=== PATIENT | female | born 1975 | race Caucasian/White ===

== ENCOUNTER 2016-07-23 17:11 | Emergency (ER) | payer OTHER ==
[2016-07-23 17:12] VITALS: BMI 28.9
[2016-07-23 17:20] VITALS: TEMP 98
[2016-07-23] MEDS ORDERED: Sodium Chloride 0.9% 1,000 ML IV STA (17:44)
--- NOTE | 2016-07-23 17:47 | ED PDOC ---
Arrival/HPI - General Chief Complaint: Abdominal Pain Time Seen by Provider: 07/23/16 17:43 Historian: Patient - History of Present Illness Narrative History of Present Illness (Text): 07/23/16 17:37 A 40 year old female, whose past medical history includes diabetes, asthma, and myomectomy, presents to the emergency department complaining of constant diffuse abdominal patient for the past 5 days. Patient states pain is waxing and waning in nature and more intensity in the cleopatra-umbilical region. Pain is associated with nausea and vomiting. Patient denies any fever, chills, diarrhea , chest pain, shortness of breath, recent travel, or any other complaints at this time. Patient states she allergic to pain medication and does not want anything for the pain at this time. PMD: Dr. Donohue Time/Duration: Other Symptom Onset: Sudden Symptom Course: Unchanged Quality: Other Activities at Onset: Rest Context: Home Past Medical History - Provider Review Nursing Documentation Reviewed: Yes - Infectious Disease Hx of Infectious Diseases: None - Cardiac Hx Hypertension: No - Pulmonary Hx Respiratory Disorders: Yes Hx Asthma: Yes (dx age 13) Other/Comment: pt has not taken asthma medication "in years" - Endocrine/Metabolic Hx Endocrine Disorders: Yes Hx Diabetes Mellitus Type 1: Yes (dx 2015) - Musculoskeletal/Rheumatological Hx Falls: Yes (2 yrs ago) - Genitourinary/Gynecological Hx Genitourinary Disorders: Yes (4 pregnancies/4 miscarriages) Hx Urinary Tract Infection: Yes (dx 03/05/16 at [facility] [place]) - Psychiatric Hx Substance Use: No - Surgical History Other/Comment: Fibroid removal - Anesthesia Hx Anesthesia: Yes Hx Anesthesia Reactions: No - Suicidal Assessment Feels Threatened In Home Enviroment: No Family/Social History - Physician Review Nursing Documentation Reviewed: Yes Family/Social History: Aortic/Thoracic Disection Smoking Status: Former Smoker Hx Alcohol Use: No Hx Substance Use: No Allergies/Home Meds Allergies/Adverse Reactions: Allergies aspirin Allergy (Severe, Verified 07/23/16 17:21) SWELLING acetaminophen [From Tylenol] Allergy (Verified 07/23/16 17:21) SWELLING diphenhydramine HCl [From Benadryl] Allergy (Verified 07/23/16 17:21) SWELLING hydromorphone HCl [From Dilaudid] Allergy (Verified 07/23/16 17:21) SWELLING ibuprofen Allergy (Verified 07/23/16 17:21) SWELLING ketorolac tromethamine [From Toradol] Allergy (Verified 07/23/16 17:21) SWELLING RASH, ITCHINESS, EYE SWELLING morphine Allergy (Verified 07/23/16 17:21) SWELLING naproxen Allergy (Verified 07/23/16 17:21) SWELLING Home Medications: Home Meds Medication Instructions Recorded Confirmed Insulin. 25 units SQ BID 01/16/16 07/23/16 Review of Systems - Physician Review All systems were reviewed & negative as marked: Yes - Review of Systems Constitutional: absent: Fevers Respiratory: absent: SOB Cardiovascular: absent: Chest Pain Gastrointestinal: Abdominal Pain, Nausea, Vomiting. absent: Diarrhea Genitourinary Female: absent: Dysuria Physical Exam Vital Signs Reviewed: Yes Vital Signs Temp Pulse Resp BP Pulse Ox 07/23/16 22:11 83 14 170/90 H 98 07/23/16 18:53 79 18 158/89 H 98 07/23/16 17:16 98 F 87 18 164/99 H 99 Temperature: Afebrile Blood Pressure: Hypertensive Pulse: Regular Respiratory Rate: Normal Appearance: Positive for: Well-Appearing, Non-Toxic, Comfortable Pain Distress: None Mental Status: Positive for: Alert and Oriented X 3 - Systems Exam Head: Present: Atraumatic, Normocephalic Pupils: Present: PERRL Extroacular Muscles: Present: EOMI Conjunctiva: Present: Normal Mouth: Present: Moist Mucous Membranes Neck: Present: Normal Range of Motion Respiratory/Chest: Present: Clear to Auscultation, Good Air Exchange. No: Respiratory Distress, Accessory Muscle Use Cardiovascular: Present: Regular Rate and Rhythm, Normal S1, S2. No: Murmurs Abdomen: Present: Tenderness (non focal diffuse tenderness with palpation), Normal Bowel Sounds. No: Distention, Peritoneal Signs, Rebound, Guarding Back: Present: Normal Inspection Upper Extremity: Present: Normal Inspection. No: Cyanosis, Edema Lower Extremity: Present: Normal Inspection. No: Edema Neurological: Present: GCS=15, CN II-XII Intact, Speech Normal Skin: Present: Warm, Dry, Normal Color. No: Rashes Psychiatric: Present: Alert, Oriented x 3, Normal Insight, Normal Concentration Medical Decision Making ED Course and Treatment: 07/23/16 21:31 I disc results w the pt. she is resting comfortably in no distress. disc plan for rx, follow up, and rtr. the pt v/u and agrees w plan. all questions and concerns addressed at this time. CT abd/pelvis IMPRESSION: Renal pelvic and proximal ureteral mucosal thickening and enhancement suggest urinary tract infection; no CT findings of appendicitis; small nonobstructing umbilical hernia containing fat and small bowel; dominant follicle/small cyst in the right ovary - Lab Interpretations Lab Results: 07/23/16 18:20 07/23/16 18:20 Lab Results 07/23/16 18:20: Sodium 135, Potassium 3.7, Chloride 98, Carbon Dioxide 31, Anion Gap 10, BUN 8, Creatinine 0.5, Est GFR ( Amer) > 60, Est GFR (Non- Af Amer) > 60, Random Glucose 259 H, Calcium 9.9, Total Bilirubin 0.8, AST 33, ALT 35, Alkaline Phosphatase 144 H, Total Protein 7.9, Albumin 4.1, Globulin 3.8 , Albumin/Globulin Ratio 1.1, Lipase 88 07/23/16 18:20: Urine Color Yellow, Urine Appearance Clear, Urine pH 6.5, Ur Specific [place] 1.010, Urine Protein Negative, Urine Glucose (UA) >=1000, Urine Ketones Negative, Urine Blood Negative, Urine Nitrate Negative, Urine Bilirubin Negative, Urine Urobilinogen 0.2, Ur Leukocyte Esterase Trace H, Urine RBC 0 - 2, Urine WBC 0 - 2, Ur Epithelial Cells 1 - 3, Urine Bacteria Small, Urine HCG, Qual Negative 07/23/16 18:20: WBC 9.3, RBC 4.58, Hgb 14.0, Hct 38.9, MCV 84.9, MCH 30.6, MCHC 36.0, RDW 12.0, Plt Count 317, MPV 9.0, Gran % 49.2 L, Lymph % (Auto) 41.8 H, Person % (Auto) 6.3 H, Eos % (Auto) 2.4, Baso % (Auto) 0.3, Gran # 4.55, Lymph # 3.9 H, Person # 0.6, Eos # 0.2, Baso # 0.03 I have reviewed the lab results: Yes - RAD Interpretation Radiology Orders: 07/23/16 17:44 ABD PELVIS PO & IV CONTRAST [CT] Stat - Medication Orders Current Medication Orders: Discontinued Medications Sodium Chloride (Sodium Chloride 0.9%) 1,000 mls @ 999 mls/hr IV .Q1H1M STA Stop: 07/23/16 18:44 Last Admin: 07/23/16 18:26 Dose: 999 mls/hr Ceftriaxone Sodium (Rocephin 1 Gram Ivpb) 1 gm in 100 mls @ 200 mls/hr IVPB STAT STA PRN Reason: Protocol Stop: 07/23/16 22:02 Last Admin: 07/23/16 21:43 Dose: 200 mls/hr Iohexol (Omnipaque 240 (50 Ml)) Confirm Administered Dose 50 ml .ROUTE .STK-MED ONE Stop: 07/23/16 17:55 Last Admin: 07/23/16 19:07 Dose: 50 ml Iohexol (Omnipaque 350 100 Ml) Confirm Administered Dose 350 mg .ROUTE .STK-MED ONE Stop: 07/23/16 18:31 Ondansetron HCl (Zofran Inj) 4 mg IVP ONCE ONE Stop: 07/23/16 17:45 Last Admin: 07/23/16 18:26 Dose: 4 mg - Scribe Statement The provider has reviewed the documentation as recorded by the Richie Rosenthal Provider Scribe Attestation: All medical record entries made by the Richie were at my direction and personally dictated by me. I have reviewed the chart and agree that the record accurately reflects my personal performance of the history, physical exam, medical decision making, and the department course for this patient. I have also personally directed, reviewed, and agree with the discharge instructions and disposition. Disposition/Present on Arrival - Present on Arrival Any Indicators Present on Arrival: No History of DVT/PE: No History of Uncontrolled Diabetes: No Urinary Catheter: No History of Decub. Ulcer: No History Surgical Site Infection Following: None - Disposition Have Diagnosis and Disposition been Completed?: Yes Diagnosis: UTI (urinary tract infection) Disposition: HOME/ ROUTINE Disposition Time: 21:33 Condition: STABLE Discharge Instructions (ExitCare): Urinary Tract Infection in Women (ED) Additional Instructions: Please follow up with your doctor. Return to the ER for any worsening symptoms or for any other concerns. Prescriptions: Cephalexin [cephalexin] 500 mg PO BID #14 cap traMADol [Ultram] 25 mg PO TID PRN #10 tab PRN Reason: Pain, Moderate (4-7) Referrals: Grace Donohue MD [Primary Care Provider] - Follow up with primary
[2016-07-23] MEDS ORDERED: Iohexol 240 (50 ml) ONE (17:54)
[2016-07-23] MEDS ORDERED: Iohexol 350 MG/100 ML VIAL ONE (18:30)
[2016-07-23 18:32] LABS: ADD MANUAL DIFF? NO
[2016-07-23 18:36] LABS: BASO # 0.03 K/mm3 (0.0-2.0); BASO % 0.3 % (0.0-3.0); EOS # 0.2 (0.0-0.7); EOS % 2.4 % (1.5-5.0); GRAN # 4.55 (1.4-6.5); GRAN % 49.2 % (50.0-68.0); HEMATOCRIT 38.9 % (36.0-48.0); LYMPH # 3.9 (1.2-3.4); LYMPH % 41.8 % (22.0-35.0); MEAN CELL VOLUME 84.9 fL (80.0-105.0); MEAN CORPUSCULAR HEMOGLOBIN 30.6 pg (25.0-35.0); MONO # 0.6 (0.1-0.6); MONO % 6.3 % (1.0-6.0); PLATELET COUNT 317 10^3/uL (120.0-450.0); WHITE BLOOD COUNT 9.3 10^3/ul (4.5-11.0)
[2016-07-23 18:37] LABS: PH,URINE 6.5 (4.7-8.0); URINE BILIRUBIN NEGATIVE (NEGATIVE); URINE BLOOD NEGATIVE (NEGATIVE); URINE GLUCOSE (UA) >=1000 mg/dL (NEGATIVE); URINE KETONE NEGATIVE (NEGATIVE); URINE LEUKOCYTE ESTERASE TRACE Leu/uL (NEGATIVE); URINE PROTEIN NEGATIVE mg/dL (<30 mg/dL); URINE UROBILINOGEN 0.2 E.U./dL (<1 E.U./dL)
[2016-07-23 18:38] LABS: URINE APPEARANCE CLEAR (CLEAR); URINE COLOR YELLOW (YELLOW)
[2016-07-23 18:51] LABS: ALB/GLOB RATIO 1.1 (1.1-1.8); ALKALINE PHOSPHATASE 144 U/L (38-133); ALT/SGPT 35 U/L (7-56); AST/SGOT 33 U/L (15-39); BILIRUBIN,TOTAL 0.8 mg/dL (0.2-1.3); BLOOD UREA NITROGEN 8 mg/dL (7-21); CALCIUM 9.9 mg/dL (8.4-10.5); CARBON DIOXIDE 31 mmol/L (21-33); CHLORIDE 98 mmol/L (98-107); GFR AFRICAN-AMERICAN > 60; GLUCOSE,RANDOM 259 mg/dL (70-110); LIPASE 88 U/L (23-300); POTASSIUM 3.7 mmol/L (3.6-5.0); SODIUM 135 mmol/L (132-148); TOTAL PROTEIN 7.9 g/dL (5.8-8.3)
[2016-07-23 18:52] LABS: URINE BACTERIA SMALL (NEG); URINE RBC 0 - 2 /hpf (0-2); URINE WBC 0 - 2 /hpf (0-6)
[2016-07-23 18:53] VITALS: O2SAT 98
--- NOTE | 2016-07-23 21:20 | CT ---
EXAM: CT Abdomen and Pelvis With Intravenous Contrast CLINICAL HISTORY: 40 years old, female; Pain; Abdominal pain; Localized; Lower; Additional info: Abd pain TECHNIQUE: Axial computed tomography images of the abdomen and pelvis with intravenous contrast. This CT exam was performed using one or more of the following dose reduction techniques: automated exposure control, adjustment of the mA and/or kV according to patient size, and/or use of iterative reconstruction technique. Coronal and sagittal reformatted images were created and reviewed. CONTRAST: 100 mL of OMNI administered intravenously. EXAM DATE/TIME: 07/23/2016 5:44 PM COMPARISON: There are no prior studies for comparison. FINDINGS: Lower thorax: Heart size is normal. There is minimal dependent atelectasis at the lung bases There is a small hiatal hernia. ABDOMEN: Liver: unremarkable Gallbladder and bile ducts: unremarkable Pancreas: unremarkable Spleen: unremarkable Adrenals: unremarkable Kidneys and ureters: There is right upper pole renal scarring. There is left renal pelvic mucosal enhancement and thickening. There is mild proximal ureteral thickening and enhancement bilaterally. There is no ureterectasis. There are no renal or ureteral stones Stomach and bowel: Stomach is incompletely distended. Rotation is normal. There is no obstruction. Terminal ileum is unremarkable. Appendix is unremarkable. Colon is incompletely distended which limits evaluation. Appendix: See above. PELVIS: Bladder: unremarkable Reproductive: Uterus appears mildly enlarged. Left adnexa is unremarkable. There is prominence of the right adnexa. There is a 2.8 cm right adnexal follicle/cyst. ABDOMEN and PELVIS: Intraperitoneal space: There is no free air or free fluid. Bones/joints: There are degenerative changes in the osseus structures. Soft tissues: There is a small nonobstructing umbilical hernia containing fat and small bowel. Vasculature: Vascular structures are unremarkable. Lymph nodes: There is no pathologic adenopathy. IMPRESSION: Renal pelvic and proximal ureteral mucosal thickening and enhancement suggest urinary tract infection; no CT findings of appendicitis; small nonobstructing umbilical hernia containing fat and small bowel; dominant follicle/small cyst in the right ovary Additional findings as described above.
[2016-07-23] MEDS ORDERED: cefTRIAXone 1 gm 1 GM/100 ML BAG IVPB STA (21:33)
[2016-07-23 22:12] VITALS: BP 170/90; PULSE 83; RESP 14
== END 2016-07-23 22:12 | disposition home or self-care (01) ==
LOC: ED 17:11
DX: N39.0 Urinary tract infection, site not specified (principal)
CPT/HCPCS: 74177; 80053; 81001; 83690; 84703; 85025; 96365; 96375; 99283; J0696; J2405; J7040; Q9966; Q9967